=== PATIENT | female | born 1950 ===

== ENCOUNTER 2020-12-20 16:50 | Emergency (ER) | payer MEDICARE ==
[~2020-12-20] VITALS: Ht 157.5 cm; Wt 77.1 kg
[2020-12-20 17:28] VITALS: Ht 157.5 cm; Wt 77.1 kg
[2020-12-20] MEDS ORDERED: TENORMIN50 MG PO (17:40)
[2020-12-20 19:24] LABS: BASOPHILS 0.2 % (0-2); EOSINOPHILS 3.2 % (0-7); HEMATOCRIT 43.1 % (36.0-48.0); HEMOGLOBIN 14.3 g/dL (12-16); LYMPHOCYTES 36.1 % (15-50); MCH 29.5 pg (26.0-34.0); MCHC 33.2 g/dL (31.0-37.0); MCV 88.9 fL (80.0-100.0); MEAN PLATELET VOLUME 8.3 fL (7.4-10.4); MONOCYTES 8.3 % (2-11); NEUTROPHILS 52.2 % (40-80); PLATELET COUNT 290 10x3/uL (130-400); RBC 4.85 10x6/uL (4.00-5.40); RDW 13.5 % (11.5-14.5); WBC 9.3 10x3/uL (4.8-10.8)
[2020-12-20 19:39] LABS: CALCIUM 8.7 mg/dL (8.5-10.1); CARBON DIOXIDE 34.7 mmol/L (21.0-32.0); CREATININE - SERUM 0.9 mg/dL (0.6-1.3); POTASSIUM - SERUM 4.7 mmol/L (3.5-5.1)
[2020-12-20 19:45] LABS: BILIRUBIN NEGATIVE (NEGATIVE); KETONE NEGATIVE (NEGATIVE); NITRITE NEGATIVE (NEGATIVE); UROBILINOGEN NORMAL mg/dL (< 2)
[2020-12-20 19:50] LABS: UDS - AMPHET NEGATIVE QUAL (NEGATIVE); UDS - BARB NEGATIVE QUAL (NEGATIVE); UDS - BENZO POSITIVE QUAL (NEGATIVE); UDS - COCAINE NEGATIVE QUAL (NEGATIVE); UDS - OPIATE NEGATIVE QUAL (NEGATIVE); UDS - PCP NEGATIVE QUAL (NEGATIVE); UDS - THC NEGATIVE QUAL (NEGATIVE)
[2020-12-20 19:56] LABS: ALBUMIN 3.2 g/dL (3.4-5.0); BILIRUBIN - TOTAL 0.19 mg/dL (0.2-1.3); THYROID STIMULATING HORMONE 4.75 uIU/mL (0.36-3.74)
[2020-12-20] MEDS ORDERED: CLEOCIN HCL300 MG PO (21:16)
[2020-12-20 21:44] VITALS: BP 142/56
== END 2020-12-20 21:45 | disposition home or self-care (01) ==
LOC: D.ER 16:50
PROVIDERS: Family Medicine
DX: L02.01 Cutaneous abscess of face (principal); I10 Essential (primary) hypertension; Z72.0 Tobacco use; R53.1 Weakness